=== PATIENT | female | born 1985 | race Caucasian/White ===

== ENCOUNTER 2016-08-27 06:03 | Inpatient (IN) | payer OTHER ==
[2016-08-24 11:09] VITALS: BMI 44.9
--- NOTE | 2016-08-26 10:33 | P.HPOB ---
History of Present Illness H&P Date: 08/26/16 Chief Complaint: Gestational hypertension, previous 31 year old presents at 37 weeks 2 days for repeat low transverse c- section with tubal ligation. She has gestational hypertension with increasing blood pressures over the last few weeks up to 168/98 in the office. Review of Systems All systems: negative Constitutional: Denies chills, Denies fever Eyes: denies blurred vision, denies pain Ears, nose, mouth and throat: Denies headache, Denies sore throat Cardiovascular: Denies chest pain, Denies shortness of breath Respiratory: Denies cough Gastrointestinal: Denies abdominal pain, Denies diarrhea, Denies nausea, Denies vomiting Genitourinary: Denies dysuria, Denies hematuria Musculoskeletal: Denies myalgias Integumentary: Denies pruritus, Denies rash Neurological: Denies numbness, Denies weakness Psychiatric: Denies anxiety, Denies depression Endocrine: Denies fatigue, Denies weight change Past Medical History Past Medical History: No Reported History Additional Past Medical History / Comment(s): OB history: first was a for failure to progress. This is her second and she has had care with me since the first trimester. She has been having high blood pressures in the office and normal at home but they have started to increase over the last few weeks. History of Any Multi-Drug Resistant Organisms: None Reported Past Surgical History: Section, Cholecystectomy, Tonsillectomy Past Anesthesia/Blood Transfusion Reactions: Previous Problems w/ Anesthesia, Postoperative Nausea & Vomiting (PONV) Additional Past Anesthesia/Blood Transfusion Reaction / Comment(s): STATES PONV , ITCHING AND SHAKING Past Psychological History: No Psychological Hx Reported Smoking Status: Never smoker Past Alcohol Use History: None Reported Past Drug Use History: None Reported - Past Family History Mother Family Medical History: Unable to Obtain Additional Family Medical History / Comment(s): pt addopted Medications and Allergies Home Medications Medication Instructions Recorded Confirmed Type Nou-Wdcq-Rxlov Acid 1 each PO DAILY 11/20/13 08/24/16 History [-U Capsule] Allergies Allergy/AdvReac Type Severity Reaction Status Date / Time amoxicillin trihydrate Allergy Rash/Hives Verified 08/24/16 11:05 [From Augmentin] potassium clavulanate Allergy Rash/Hives Verified 08/24/16 11:05 [From Augmentin] Exam Osteopathic Statement: *. No significant issues noted on an osteopathic structural exam other than those noted in the History and Physical/Consult. Heart: RRR Lungs: CTAB ABdomen: soft, nontender Extremeties: neg devante's Assessment and Plan (1) Previous section Status: Acute (2) Gestational hypertension Status: Acute (3) Family planning Status: Acute Plan: 1. repeat low transverse with tubal ligation
[2016-08-27] MEDS ORDERED: LACTATED RINGERS 1,000 ML IV ONE (06:11)
[2016-08-27] MEDS ORDERED: CITRIC ACID-SODIUM CITRATE 15 ML CUP PO ONE (06:11)
[2016-08-27] MEDS ORDERED: CLINDAMYCIN 600 MG in DEXTROSE 5% IN WATER 50 ML IVPB STA ×2 (06:11)
[2016-08-27 06:42] LABS: Basophils % (A) 0 %; CH 30.1; Eosinophils % (A) 1 %; HCT 36.9 % (34.0-46.0); HDW 3.02; HGB 12.5 gm/dL (11.4-16.0); Luc # (Auto) 0.22; Luc % (Auto) 3; Lymphocytes # (A) 1.7 k/uL (1.0-4.8); Lymphocytes % (A) 24 %; MCH 30.2 pg (25.0-35.0); Mean Platelet Volume 7.2; Monocytes # (A) 0.5 k/uL (0-1.0); Monocytes % (A) 6 %; Neutrophils # (A) 4.8 k/uL (1.3-7.7); Neutrophils % (A) 66 %; RBC 4.14 m/uL (3.80-5.40); RDW 15.3 % (11.5-15.5); WBC 7.3 k/uL (3.8-10.6); WBC (Perox) 7.69
[2016-08-27 06:52] LABS: ALT 21 U/L (9-52); AST 19 U/L (14-36); Non-African American GFR(MDRD) >60 (>60 ml/min/1.73 sqM); Uric Acid 5.5 mg/dL (3.7-7.4)
[2016-08-27 06:58] LABS: INR 0.9 (<1.1); Partial Thromboplastin Time 23.9 sec (22.0-30.0); Prothrombin Time 9.6 sec (9.0-12.0)
[2016-08-27] MEDS ORDERED: MORPHINE SULFATE (PF) 0.3 MG/0.3 ML SYR ONE (08:01)
[2016-08-27] MEDS ORDERED: OXYTOCIN 10 UNIT/ML 1 ML VIAL IM ONE (08:01)
[2016-08-27] MEDS ORDERED: diphenhydrAMINE 50 MG/ML 1 ML VIAL ONE (08:01)
[2016-08-27] MEDS ORDERED: KETOROLAC 30 MG/ML 1 ML VIAL ONE (08:01)
[2016-08-27] MEDS ORDERED: fentaNYL (PF) 50 MCG/ML 2 ML AMP ONE (08:01)
[2016-08-27] MEDS ORDERED: NALBUPHINE 10 MG/ML AMPUL ONE (08:01)
[2016-08-27] MEDS ORDERED: ONDANSETRON 4 MG/2 ML VIAL ONE (08:01)
[2016-08-27] MEDS ORDERED: ONDANSETRON 4 MG/2 ML VIAL IVP PRN (08:58)
[2016-08-27] MEDS ORDERED: LANOLIN CREAM 5 GM TUBE TOPICAL PRN (08:58)
[2016-08-27] MEDS ORDERED: NALOXONE 0.4 MG/ML 1 ML VIAL IV PRN (08:58)
[2016-08-27] MEDS ORDERED: KETOROLAC 30 MG/ML 1 ML VIAL IVP PRN (08:58)
[2016-08-27] MEDS ORDERED: diphenhydrAMINE 25 MG CAP PO PRN (08:58)
[2016-08-27] MEDS ORDERED: diphenhydrAMINE 50 MG CAP PO PRN (08:58)
[2016-08-27] MEDS ORDERED: Acetaminophen-Codeine 300-30mg TAB PO PRN ×2 (08:58)
[2016-08-27] MEDS ORDERED: METOCLOPRAMIDE 5 MG/ML 2 ML VIAL IVP PRN (08:58)
[2016-08-27] MEDS ORDERED: ZOLPIDEM 5 MG TAB PO PRN (08:58)
[2016-08-27] MEDS ORDERED: SIMETHICONE 80 MG CHEWABLE PO PRN (08:58)
[2016-08-27] MEDS ORDERED: diphenhydrAMINE 50 MG/ML 1 ML VIAL IVP PRN ×2 (08:58)
[2016-08-27] MEDS ORDERED: OXYTOCIN 30 UNITS/500 ML NS 30 UNIT in SALINE 1 500ML.BAG IV SCH (09:00)
[2016-08-27] MEDS: LACTATED RINGERS 1,000 ML IV SCH (12:27)
--- NOTE | 2016-08-27 12:42 | P.OP ---
Date of Procedure: 08/27/16 Preoperative Diagnosis: 1. at 37 weeks 2 days 2. previous Postoperative Diagnosis: 1. at 37 weeks 2 days 2. previous Procedure(s) Performed: Repeat low transverse Anesthesia: spinal Surgeon: Hannah Rico Ampoule Sealer #1: Silva Man Estimated Blood Loss (ml): 500 IV fluids (ml): 500 Urine output (ml): 300 Pathology: other (Placenta) Condition: stable Disposition: floor Operative Findings: Viable male, Apgars 8, 9, weight 7 pounds Description of Procedure: Patient was taken to the operating room where spinal anesthesia was found be adequate. She was prepped and draped in normal sterile fashion in dorsal supine position with a leftward tilt. Pfannenstiel skin incision was made the scalpel and carried through to the underlying layer of fascia with the scalpel. Fascia was incised in midline and carried bilaterally with the Rodríguez scissors. The superior aspect of the fascial incision was grasped with [place] clamps elevated and the underlying rectus muscles dissected off with the Rodríguez's. Attention was then turned to inferior aspect of same incision which in a similar fashion was grasped tented up and the underlying rectus muscles dissected off with the Rodríguez's. The rectus muscles were the midline and the peritoneum was identified tented up and entered sharply with the scalpel. The incision was extended superiorly and inferiorly with good visualization of the bladder. The Sergei retractor was placed. The bladder blade was inserted and the vesicouterine peritoneum was incised the [place] then carried bilaterally and bladder flap created digitally. A low transverse incision was then made on the uterus with the scalpel. This was carried bilaterally and digital manner. 's head delivered atraumatically, nose and mouth bulb suctioned, cord clamped and cut, handed off to waiting nurses. Apgars 8,9, weight 7 lbs. Placenta delivered manually, intact with three-vessel cord. The uterus is exteriorized and cleared of all clots and debris. The uterine incision was closed with 0 Vicryl in a running locked fashion. Second layer of the same sutures used in imbricating fashion to obtain excellent hemostasis. Bladder flap was then reapproximated using 2-0 Vicryl in a running fashion. Both ovaries and tubes appeared normal. The uterus was placed back into the abdomen. The peritoneum was reapproximated using 2-0 Vicryl in a running fashion. The muscles were reapproximated using 2- 0 Vicryl in interrupted fashion. The fascia was reapproximated using 0 Vicryl in a running fashion. The subcutaneous tissues closed with 3-0 Vicryl running fashion. The skin was closed cisco. Patient tolerated the procedure well, sponge and instrument counts were correct times 2 and she was taken to the recovery room in stable condition.
[2016-08-27] MEDS: SENNOSIDES-DOCUSATE SODIUM 1 EACH TAB PO SCH (20:13)
[2016-08-27] MEDS: ACETAMINOPHEN TAB 325 MG TAB PO PRN (20:13)
[2016-08-28] MEDS: LACTATED RINGERS 1,000 ML IV SCH ×4 (00:59→20:31)
[2016-08-28] MEDS: IBUPROFEN 600 MG TAB PO PRN ×4 (02:25→23:02)
[2016-08-28 05:36] LABS: Basophils % (A) 0 %; CH 30.1; CHCM 33.8; Eosinophils # (A) 0.1 k/uL (0-0.7); Eosinophils % (A) 1 %; HCT 33.6 % (34.0-46.0); HDW 2.97; HGB 11.3 gm/dL (11.4-16.0); Luc # (Auto) 0.22; Luc % (Auto) 3; Lymphocytes # (A) 1.7 k/uL (1.0-4.8); Lymphocytes % (A) 20 %; MCHC 33.5 g/dL (31.0-37.0); MCV 89.5 fL (80.0-100.0); Mean Platelet Volume 8.8; Monocytes # (A) 0.4 k/uL (0-1.0); Monocytes % (A) 5 %; Neutrophils # (A) 5.9 k/uL (1.3-7.7); Neutrophils % (A) 71 %; RBC 3.76 m/uL (3.80-5.40); RDW 15.3 % (11.5-15.5); WBC 8.3 k/uL (3.8-10.6); WBC (Perox) 8.84
[2016-08-28] MEDS: SENNOSIDES-DOCUSATE SODIUM 1 EACH TAB PO SCH ×3 (09:30→20:31)
--- NOTE | 2016-08-28 09:52 | P.PN ---
Progress Note - Text Date:08/29 Time:705 Patient is status post . Patient seen this morning with VAS score of 2. c/o of pruritus, no c/o nausea/vomiting, comfortable and doing well today.
[2016-08-28] MEDS: ACETAMINOPHEN TAB 325 MG TAB PO PRN ×2 (12:37→19:58)
[2016-08-29] MEDS: ACETAMINOPHEN TAB 325 MG TAB PO PRN (06:55)
[2016-08-29] MEDS: SENNOSIDES-DOCUSATE SODIUM 1 EACH TAB PO SCH (08:34)
[2016-08-29] MEDS: IBUPROFEN 600 MG TAB PO PRN (08:34)
--- NOTE | 2016-08-29 08:46 | P.PNOBGPC ---
Subjective - Subjective Patient reports: Reports appetite normal, Reports voiding normally, Reports pain well controlled, Reports ambulating normally : doing well Objective - Vital Signs Latest vital signs: Vital Signs Temp Pulse Resp BP Pulse Ox 08/29/16 04:00 7.9 F L 72 17 126/75 99 08/28/16 20:00 98.1 F 88 18 143/83 08/28/16 15:52 97.3 F L 84 146/89 Intake and Output 08/28/16 08/29/16 08/29/16 22:59 06:59 14:59 Other: # Voids 2 2 # Bowel Movements 1 - Exam Lungs: bilateral: normal Chest: Normal S1, Normal S2 Extremities: Present: normal Abdomen: Present: normal appearance, soft. Absent: distention, tenderness Incision: Present: normal, dry, intact Uterus: Present: normal, firm Assessment and Plan (1) delivery delivered Narrative/Plan: This is postoperative day #2. Patient is resting without complaints and wishes to go home. Vital signs are stable she's afebrile. Her uterus is firm nontender and her incision is intact and dry. Patient is tolerating regular diet, urinating, ambulating without difficulty. My impression is a normal postoperative course. Patient's felt to be stable for discharge home follow up with Dr. Rico in 1 week. Current Visit: Yes Status: Acute Code(s): O82 - ENCOUNTER FOR DELIVERY WITHOUT INDICATION SNOMED Code(s): 931212960
--- NOTE | 2016-08-29 08:49 | P.DS ---
Providers Date of admission: 08/27/16 06:03 Expected date of discharge: 08/29/16 Attending physician: Hannah Rico Primary care physician: Stated None - Discharge Diagnosis(es) (1) delivery delivered Current Visit: Yes Status: Acute Hospital Course: Please see dictated H&P for intimate details of this patient's admission. Brief summary this is a pleasant 31-year-old 2 para 1 female 37-2/7 weeks gestation admitted by Dr. Rico for elective repeat section secondary to gestational hypertension. Patient is admitted undergoes above- named surgery. Please see dictated operative note. By postoperative 2 patient' s felt be stable for discharge home follow-up with Dr. Rico in 1 week. She was instructed to call should any fever, chills, excessive vaginal bleeding, and /or abdominal pain. Procedures: Repeat low transverse section Patient Condition at Discharge: Good Plan - Discharge Summary Discharge Medication List Vai-Lxtu-Paiet Acid [-U Capsule] 1 each PO DAILY 11/20/13 [ History] Follow up Appointment(s)/Referral(s): Hannah Rico DO [Doctor of Osteopathic Medicine] - 09/09/16 1:45 pm ( Patient also has a appointment on October 08 at 11:15 AM.) Activity/Diet/Wound Care/Special Instructions: No strenuous activity or heavy lifting for 6 weeks. Please call if any fever, chills, excessive vaginal bleeding, and/or abdominal pain. Discharge Disposition: HOME SELF-CARE
[2016-08-29 08:53] VITALS: BP 127/70; PULSE 68; RESP 20; TEMP 97.6
== END 2016-08-29 11:35 | disposition home or self-care (01) | DRG 766 ==
LOC: 4FBP 06:03
PROVIDERS: ADMIT Obstetrics & Gynecology; ATTEND Obstetrics & Gynecology
PROC: 10D00Z1 Extraction of Products of Conception, Low, Open Approach (ICD-10-PCS; principal; 2016-08-27 08:00)
DX: O13.4 Gestational [pregnancy-induced] hypertension without significant proteinuria, complicating childbirth (principal); Z88.1 Allergy status to other antibiotic agents; O34.211 Maternal care for low transverse scar from previous cesarean delivery; Z37.0 Single live birth; Z3A.37 37 weeks gestation of pregnancy
CPT/HCPCS: 82565; 84450; 84460; 84550; 85025; 85610; 85730; 86850; 86900; 86901; 88307

== ENCOUNTER → 2016-10-08 | Outpatient (CLI) | payer OTHER ==
[2016-10-08 12:56] LABS: Basophils % (A) 1 %; CH 29.1; CHCM 32.3; Eosinophils # (A) 0.1 k/uL (0-0.7); Eosinophils % (A) 1 %; HCT 47.3 % (34.0-46.0); HDW 2.55; Luc # (Auto) 0.13; Luc % (Auto) 2; Lymphocytes # (A) 2.2 k/uL (1.0-4.8); Lymphocytes % (A) 28 %; MCH 29.3 pg (25.0-35.0); MCHC 32.4 g/dL (31.0-37.0); MCV 90.3 fL (80.0-100.0); Mean Platelet Volume 6.9; Monocytes # (A) 0.4 k/uL (0-1.0); Monocytes % (A) 5 %; Neutrophils # (A) 4.8 k/uL (1.3-7.7); Neutrophils % (A) 63 %; RBC 5.24 m/uL (3.80-5.40); RDW 13.7 % (11.5-15.5); WBC 7.6 k/uL (3.8-10.6); WBC (Perox) 7.44
[2016-10-08 12:58] LABS: HGB 15.3 gm/dL (11.4-16.0)
== END | disposition home or self-care (01) ==
LOC: LABPAT 12:11
PROVIDERS: ATTEND Obstetrics & Gynecology
DX: Z01.812 Encounter for preprocedural laboratory examination (principal)
CPT/HCPCS: 36415; 85025

== ENCOUNTER 2016-10-14 11:26 | Day surgery (SDC) | payer OTHER ==
[2016-10-12 13:06] VITALS: BMI 42.9
--- NOTE | 2016-10-14 11:14 | P.HPOB ---
History of Present Illness H&P Date: 10/14/16 Chief Complaint: left ovarian cyst 31 year old presents for laparoscopic aspiration of left ovarian cyst. She had a 2 months ago in which her ovaries and tubes appeared normal. A few weeks ago she went to the ER with complaints of severe pain. The CT and US showed a 17cm cystic mass coming out of the left adnexa. repeat US showed no resolution and so surgery is indicated. Disc all R/B/A with pt. Review of Systems All systems: negative Constitutional: Denies chills, Denies fever Eyes: denies blurred vision, denies pain Ears, nose, mouth and throat: Denies headache, Denies sore throat Cardiovascular: Denies chest pain, Denies shortness of breath Respiratory: Denies cough Gastrointestinal: Denies abdominal pain, Denies diarrhea, Denies nausea, Denies vomiting Genitourinary: Denies dysuria, Denies hematuria Musculoskeletal: Denies myalgias Integumentary: Denies pruritus, Denies rash Neurological: Denies numbness, Denies weakness Psychiatric: Denies anxiety, Denies depression Endocrine: Denies fatigue, Denies weight change Past Medical History Past Medical History: No Reported History Additional Past Medical History / Comment(s): OB history: 2 c-sections History of Any Multi-Drug Resistant Organisms: None Reported Past Surgical History: Section, Cholecystectomy, Tonsillectomy Additional Past Surgical History / Comment(s): Section X2. Past Anesthesia/Blood Transfusion Reactions: Previous Problems w/ Anesthesia, Postoperative Nausea & Vomiting (PONV) Additional Past Anesthesia/Blood Transfusion Reaction / Comment(s): STATES PONV , ITCHING AND SHAKING. PT ADOPTED, UNKNOWN FAMILY HX. Past Psychological History: No Psychological Hx Reported Smoking Status: Former smoker Past Alcohol Use History: None Reported Additional Past Alcohol Use History / Comment(s): Smoked <1/2 PPD for 8 yrs, quit in 2016. Past Drug Use History: None Reported - Past Family History Mother History Unknown: Yes Family Medical History: Unable to Obtain Additional Family Medical History / Comment(s): pt adopted Medications and Allergies Home Medications Medication Instructions Recorded Confirmed Type No Known Home Medications [No 10/12/16 10/12/16 History Known Home Medications] Allergies Allergy/AdvReac Type Severity Reaction Status Date / Time amoxicillin trihydrate Allergy Rash/Hives Verified 10/12/16 12:54 [From Augmentin] potassium clavulanate Allergy Rash/Hives Verified 10/12/16 12:54 [From Augmentin] Exam Osteopathic Statement: *. No significant issues noted on an osteopathic structural exam other than those noted in the History and Physical/Consult. HEart: RRR Lungs: CTAB ABdomen: soft, nontender, mass palpated Extremeties: neg devante's Assessment and Plan (1) Left ovarian cyst Status: Acute Plan: 1. laparoscopic aspiration of left ovarian cyst, possible left salpingo- oopherectomy, possible laparotomy.
[~2016-10-14 11:26] MED LIST: DEXAMETHASONE SOD PHOSPHATE 10 MG/ML 1 ML VIAL IV ONE; HYDROmorphone 1 MG/ML 1 ML SYRINGE IVP PRN; LACTATED RINGERS 1,000 ML IV SCH; LIDOCAINE 1% 20 ML VIAL (10MG/ML) FOR IV START INTRADERMA PRN; MIDAZOLAM 2 MG/2 ML VIAL IV PRN; ONDANSETRON 4 MG/2 ML VIAL IVP ONE; Pre Op ABX Message 1 EACH MISC MISCELLANE ONE; SCOPOLAMINE 1.5MG/72HR PATCH TRANSDERM ONE
[2016-10-14] MEDS ORDERED: GLYCOPYRROLATE 0.2 MG/ML 2 ML VIAL ONE (12:29)
[2016-10-14] MEDS ORDERED: ROCURONIUM BROMIDE 10 MG/ML 10 ML VIAL IV ONE (12:29)
[2016-10-14] MEDS ORDERED: NEOSTIGMINE 1 MG/ML 10 ML VIAL ONE (12:29)
[2016-10-14] MEDS ORDERED: LIDOCAINE 1% INJ 10MG/ML (20 ML MDV) ONE (12:29)
[2016-10-14] MEDS ORDERED: PROPOFOL 10 MG/ML 20 ML VIAL IV ONE (12:29)
[2016-10-14] MEDS ORDERED: SUCCINYLCHOLINE CHLORIDE 100 MG/5 ML SYR IV ONE (12:29)
[2016-10-14] MEDS ORDERED: fentaNYL (PF) 50 MCG/ML 2 ML AMP ONE (12:29)
[2016-10-14] MEDS ORDERED: diphenhydrAMINE 50 MG/ML 1 ML VIAL ONE (12:29)
[2016-10-14] MEDS ORDERED: KETOROLAC 30 MG/ML 1 ML VIAL ONE (12:29)
[2016-10-14] MEDS ORDERED: MIDAZOLAM 2 MG/2 ML VIAL ONE (12:29)
[2016-10-14] MEDS ORDERED: HYDROmorphone (PF) 1 MG/ML ONE (12:29)
[2016-10-14] MEDS ORDERED: BUPIVACAINE (PF) 0.25% 30 ML VIAL SQ ONE (13:04)
[2016-10-14] MEDS ORDERED: LACTATED RINGERS 1,000 ML IV ONE (13:06)
--- NOTE | 2016-10-14 13:25 | P.OP ---
Date of Procedure: 10/14/16 Preoperative Diagnosis: 1. Left ovarian cyst Postoperative Diagnosis: 1. Left ovarian cyst Procedure(s) Performed: Operative laparoscopy with left ovarian cyst aspiration Anesthesia: LISA Surgeon: Hannah Rico Estimated Blood Loss (ml): 4 IV fluids (ml): 900 Urine output (ml): 20 Pathology: none sent Condition: stable Disposition: PACU Operative Findings: 1600 mL of clear, yellow serous fluid drained from the left ovarian cyst Description of Procedure: Patient taken the operating room where general anesthesia was obtained without difficulty. She is prepped and draped in normal sterile fashion dorsal body position, legs placed in the [place] stirrups. Bladder was drained of all urine. [place] speculum placed in the vagina and anterior lip the cervix was grasped with single-tooth tenaculum. The uterus sounded 11 cm. The kroner manipulator was placed. Attention was then turned to the abdomen and gloves were changed. A 10 mm incision was made in the right lower quadrant and a 10 mm optical trocar was placed under direct visualization. Immediately visible was a large left ovary that appeared cystic in nature. A incision was made in the right upper quadrant a 5 mm optical trocar was placed under direct conization. A 5 mm incision was made in the low left upper quadrant and a 5 mm optical trochars placed under direct visualization. The cautery was used to create a hole in the ovarian cyst and the suction manager data warehousing was introduced to remove all the fluid. The cautery was used to make a larger hole in the ovarian cyst to ensure that it will not reform. The the ovary and tube were then tucked behind the uterus. The right fallopian tube and ovary appeared normal the uterus appeared normal. All instruments removed from the abdomen and vagina. The 10 mm incision was closed first with 0 Vicryl in a fascial layer and then 4-0 Vicryl subcuticular fashion. The 5 mm incisions were closed with 4-0 Vicryl subcuticular fashion. Patient tolerated procedure well, sponge and instrument counts are correct 2. She was taken to recovery room in stable condition.
[2016-10-14 13:37] VITALS: RESP 16; TEMP 97.2
[2016-10-14 14:46] VITALS: BP 148/91; PULSE 86
== END 2016-10-14 15:01 | disposition home or self-care (01) ==
LOC: OR 11:26
PROVIDERS: ATTEND Obstetrics & Gynecology
DX: N83.202 Unspecified ovarian cyst, left side (principal); Z88.0 Allergy status to penicillin; Z87.891 Personal history of nicotine dependence
CPT/HCPCS: 49322; 81025; J2250; J1200; J1100; J2710; J2405; J2001; J3010; J1885; J1170; J0330; J2704